=== PATIENT | female | born 1995 ===

== ENCOUNTER 2020-01-21 08:33 | Emergency (ER) | payer OTHER, SELFPAY ==
[2020-01-21] MEDS ORDERED: Boostrix 0.5 ML (Tdap) VIAL ONE (08:58)
== END 2020-01-21 09:12 | disposition home or self-care (01) ==
LOC: ERS 08:33
DX: T81.41XA Infection following a procedure, superficial incisional surgical site, initial encounter (principal); M79.642 Pain in left hand
CPT/HCPCS: 90471; 90715